=== PATIENT | female | born 1985 ===

== ENCOUNTER → 2023-03-29 | Outpatient (CLI) | payer BC ==
[2023-04-04 10:49] LABS: HPV GENOTYPE 16 Not Detected; HPV GENOTYPE 18 Not Detected; HPV HIGH RISK Not Detected; HPV SOURCE Cervical/Vag
== END ==
LOC: LAB SHORT 13:28 → LAB 13:28
PROVIDERS: Obstetrics & Gynecology
DX: Z01.419 Encounter for gynecological examination (general) (routine) without abnormal findings (principal)
CPT/HCPCS: 87624; G0123

== ENCOUNTER 2024-01-20 08:28 | Day surgery (SDC) | payer BC ==
[~2024-01-20] VITALS: Ht 160 cm; Wt 53.4 kg
[2024-01-20] VITALS (8 sets, daily range): BP systolic 104–124; BP diastolic 68–85
[~2024-01-20 08:28] MED LIST: ALDACTONE100 MG PO; BUPR100ER PO; COTEMPLA XR-OD8.6 MG PO; GUANFACINE HCL2 M1 PO; METPHE10 PO; STELARA90 MG/1 ML SQ; Tenex1 MG PO; VENL25 PO
[2024-01-20] MEDS ORDERED: Midazolam HCl 1MG / ML 2ML Vial IV ONE (08:35)
[2024-01-20] MEDS ORDERED: CeFAZolin Sodium 2,000 MG in NS 100 ML IV SCH (08:35)
[2024-01-20] MEDS ORDERED: Lactated Ringer's 1,000 ML IV SCH (08:35)
[2024-01-20] MEDS ORDERED: Bupivacaine 0.5% HCl 5 MG/ML 30MLVIAL ONE (09:21)
[2024-01-20] MEDS ORDERED: propofoL 20 ML IV ONE (09:42)
[2024-01-20] MEDS ORDERED: FentaNYL Citrate 50 MCG/ML 2 ML Injection ONE (09:43)
--- NOTE | 2024-01-20 09:44 | NUR ---
Eye glasses & cell phone to PACU.
[2024-01-20] MEDS ORDERED: Dexamethasone Sod Phos 10 MG/ML 1ML VIAL ONE (09:50)
[2024-01-20] MEDS ORDERED: Ondansetron HCl 2 MG / ML 2ML Vial ONE (09:50)
[2024-01-20] MEDS ORDERED: Phenylephrine HCl 100 MCG/ML-NS 10MLSYR (1MG/10ML) ONE (10:01)
[2024-01-20] MEDS ORDERED: Ketorolac Tromethamine 30mg Vial ONE (10:16)
[2024-01-20] MEDS ORDERED: Sugammadex Sodium 200 MG/2ML SDV (100 MG/ML) ONE (10:35)
[2024-01-20] MEDS ORDERED: Rocuronium Bromide 10 MG/ML 5ML Injection IV ONE (10:35)
[2024-01-20] MEDS ORDERED: HYDROcodone 5-APAP 325 TAB PO PRN (11:05)
--- NOTE | 2024-01-20 11:48 | NUR ---
DISCHARGE PT A&OX4/VSS/RA, DENIES PAIN, DENIES NAUSEA, IV DC'D, DC INS PROVIDED AND PT REP UNDERSTANDING THOSE INSTRUCTIONS, LEFT VIA WC WITH DC VOL TO GO HOME WITH WITH ALL PERSONAL POSSESSIONS.
== END 2024-01-20 23:23 | disposition home or self-care (01) ==
LOC: ORSCMMR 08:28 → ORD 09:45 → ORSCMMR 23:23
PROVIDERS: Surgery
PROC: 0UT74ZZ Resection of Bilateral Fallopian Tubes, Percutaneous Endoscopic Approach (ICD-10-PCS; principal; 2024-01-20 09:45)
PROC: 0WQF0ZZ Repair Abdominal Wall, Open Approach (ICD-10-PCS; principal; 2024-01-20 09:45)
DX: K42.9 Umbilical hernia without obstruction or gangrene (principal); Z30.2 Encounter for sterilization; F41.9 Anxiety disorder, unspecified; F32.A Depression, unspecified; Z79.899 Other long term (current) drug therapy
CPT/HCPCS: 88302; J0690; J1100; J1885; J2250; J2371; J2405; J2704; J3010; J7120